=== PATIENT | male | born 2000 | race Caucasian/White ===

== ENCOUNTER 2019-02-02 17:36 | Emergency (ER) | payer OTHER ==
[~2019-02-02] VITALS: Ht 167.6 cm; Wt 72.1 kg
[2019-02-02 17:42] VITALS: Ht 167.6 cm; Wt 72.1 kg
[2019-02-02 19:49] VITALS: BP 110/63
== END 2019-02-02 19:49 | disposition home or self-care (01) ==
LOC: ED 17:36
DX: R07.89 Other chest pain (principal)

== ENCOUNTER 2019-11-05 17:53 | Emergency (ER) | payer MEDICAID ==
[~2019-11-05] VITALS: Ht 167.6 cm; Wt 72.6 kg
[2019-11-05 18:02] VITALS: Ht 167.6 cm; Wt 72.6 kg
[2019-11-05 19:10] VITALS: BP 125/61
== END 2019-11-05 19:10 | disposition home or self-care (01) ==
LOC: ED 17:53
DX: B34.9 Viral infection, unspecified (principal)

== ENCOUNTER 2020-11-08 11:49 | Emergency (ER) | payer MEDICAID ==
[~2020-11-08] VITALS: Ht 160 cm; Wt 56.7 kg
[2020-11-08 11:50] VITALS: BP 124/85; Ht 160 cm; Wt 56.7 kg
== END 2020-11-08 13:34 | disposition home or self-care (01) ==
LOC: ED 11:49
DX: U07.1 COVID-19 (principal); J36 Peritonsillar abscess
CPT/HCPCS: J0696; J1885; J2405; U0003